=== PATIENT | female | born 1930 | race Caucasian/White ===

== ENCOUNTER 2016-08-27 09:33 | Outpatient (CLI) | payer MEDICARE, OTHER ==
[2015-12-24 17:39] VITALS: BP 151/85
[2016-08-27 10:31] LABS: eGFR (African) > 60; eGFR (Non-African) > 60
--- NOTE | 2016-08-27 13:58 | Diagnostic Imaging Report ---
JAMIE XIAO [facility] [address] [facility] [address] [address] Report Submission Date: Aug 27, 2016 11:44:37 AM CDT Patient Study Name: RA PLATT Date: Aug 27, 2016 9:48:43 AM CDT Modality Type: CR Gender: F Description: PELVIS : 32 Institution: [facility] Physician: JAMIE XIAO Left hip -two views CLINICAL HISTORY: Chronic left hip pain. FINDINGS: Examination left hip in AP and frog-leg lateral views demonstrates degenerative changes with slight narrowing of the joint space and minimal osteophyte formation. There is no evident fracture and no lytic or blastic lesion. IMPRESSION: Mild degenerative changes. Electronically signed on Aug 27, 2016 11:44:37 AM CDT by: Bryson RICHARDS
== END 2016-08-27 09:35 ==
LOC: LAB 09:33
PROVIDERS: ATTEND Family Medicine
DX: I10 Essential (primary) hypertension (principal); E11.9 Type 2 diabetes mellitus without complications; I25.10 Atherosclerotic heart disease of native coronary artery without angina pectoris; M25.552 Pain in left hip
CPT/HCPCS: 36415; 80048; 83036

== ENCOUNTER 2016-09-16 12:59 | Outpatient (CLI) | payer MEDICARE, OTHER ==
[2015-12-24 17:39] VITALS: BP 151/85
[~2016-09-16 12:59] MED LIST: BUPIVACAINE HCL/PF 2.5 MG/ML 10ML VIAL IV ONE; Lidocaine 1% 5ml(IM or SUTURE)(PAIN CLINIC) ONE; TRIAMCINOLONE ACETONID 40MG/ML VIAL ONE
--- NOTE | 2016-09-18 12:20 | HISTORY AND PHYSICAL REPORT ---
REFERRING PHYSICIAN: Dr. Dexter Beckham Dear Dexter: HISTORY OF PRESENT ILLNESS: I had the opportunity of seeing Adilene Rapp today as an outpatient at [facility]. As you are aware, Adilene is a very nice 86-year-old white female who comes in today with left hip pain radiating down the left lateral thigh. She says that this has been going on for several months. It has been getting worse and more limiting. She has not been unable to sustain standing or ambulation. She is also having some lateralizing hip pain when she lies down at night. She says the pain radiates to the knee but generally not past the lower leg. She has had a multi-level lumbar instrumentation and fusion with instrumentation of L2-L3, L3-L4, and L4-L5. She has got a decompression at L5-S1 without instrumentation with a questionable hypermobile segment at L5-S1. She really has very little symptoms on the right. She says the pain is primarily on the left and it has been about 5 years and now suddenly worse. 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 PAST MEDICAL HISTORY: 1. History of vision problems. 2. Heart attack. 3. Hypertension. 4. Diabetes. 5. Chronic pain. PAST SURGICAL HISTORY: 1. Cardiac bypass in 2014. 2. Cataracts removed in 2013. 3. Gallbladder removal. 4. Lumbar surgery around 1998. CURRENT DAILY MEDICATIONS: 1. Metoprolol 25 mg b.i.d. 2. HCTZ 12.5 mg daily. 3. Metformin 500 mg b.i.d. 4. Glimepiride 1 mg b.i.d. 5. Ibuprofen 600 mg t.i.d. p.r.n. 6. Atorvastatin 20 mg at bedtime. 7. Aspirin 81 mg daily. ALLERGIES: She has no known drug allergies. SOCIAL HISTORY: She is a former smoker. She denies alcohol or recreational drugs. She is a . She has 6 children. She lives at home alone. She completed high school. 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 She is not currently employed. She is not currently disabled. FAMILY HISTORY: Family history includes with stroke, cancer, and thyroid disease. Siblings with diabetes and cancer. REVIEW OF SYSTEMS: In the past month or so, she reports chest pain, swelling in hands and feet, shortness of breath, cough or cold. Pain is worse with standing, bending, walking, twisting, getting up from a chair, changes in weather, cold, driving, touch, getting up in the morning or in any position for too long. PHYSICAL EXAMINATION: General: This is a well-nourished, well-developed white female appearing her stated age in no apparent distress. Vital Signs: BP: 136/75, R: 20, oxygen saturation is 97% on room air. HEENT: Pupils are equal, round, and reactive to light and accommodation. Extraocular movements intact. No facial droop. Neck: There is full range of motion of the cervical spine. No evidence of adenopathy. Thyroid is nontender, no enlarged. Carotids are without bruits. Chest: Clear to auscultation bilaterally. Normal. Chest excursion. Heart: Regular rate and rhythm without murmur. Abdomen: Benign. Normoactive bowel sounds. Motor/sensory: Intact in the upper and lower extremities. Moves all extremities freely. Back: There is a mildly positive straight leg raise on the right. There is pain at the left sciatic notch and positive left straight leg raise and pain in the left sacroiliac joint. There is a negative Magdalena and a negative Orestes's sign. No evidence of pain from hip arthropathy. Strength is 5/5 and equal in lower extremities. Reflexes are 2+ and equal in patellar tendon and Achilles tendon. ASSESSMENT: 1. Lumbosacral radiculitis. 2. Left greater trochanteric bursitis. 3. History of L2 through S1 fusion with instrumentation at L2 through L5. 4. Possible hypermobile segment at L5-S1. PLAN: Plan for a left S1 transforaminal epidural injection today with left greater trochanteric bursa. Could consider obtaining CT imaging if not improved on follow up. I think this lady did have radiofrequency neurolysis done to her back at some point, questionably the sacroiliac joint because of the number of fusions. At this point, I am not impressed that this would be successful at controlling her back and hip pain. cc: Dr. Dexter RICHARDS
--- NOTE | 2016-09-18 12:30 | SACRAL TFESI ---
REFERRING PHYSICIAN: Dr. Dexter Beckham PROCEDURE: Left S1 nerve root transforaminal epidural steroid injection with fluoroscopic guidance. DESCRIPTION OF PROCEDURE: The risk and benefits of the injections were discussed with the patient, including the risk of infection, bleeding and nerve injury. Furthermore, I discussed the risk of steroid exposure causing hyperglycemia, hypertension, osteoporosis, of increased infectious risks. The patient understood these risks and agreed to proceed. Consent was obtained. The patient was placed in the prone position on the fluoroscopy table. The sacral region was cleaned and a sterile drape was applied. AP, lateral and oblique fluoroscopic views were obtained identifying the sacrum and the S1 foramen. A 25-gauge Quincke tip 3.5 spinal needle was advanced under direct fluoroscopic guidance until the tip was located in the lateral aspect of the foramen epidural space. This was confirmed with AP and lateral fluoroscopic views. Care was exercised not to allow the needle to pass through the sacrum anteriorly. It was verified that there was no aspiration of CSF or blood. Omnipaque 240 myelogram dye was injected through the needle. The dye was noted to course in the desired distribution within the left S1 sacral foramen epidural space and out the S1 nerve root. Triamcinolone acetate and 0.25% bupivacaine and 1% lidocaine was injected into the epidural space. The stylet was replaced in the needle and the needle was removed from the back. At this point, attention was directed to the left greater trochanteric bursa. An injection of triamcinolone and 0.25% bupivacaine mixed with 1% lidocaine was placed in the left greater trochanteric bursa. The patient tolerated the procedure well. The back was cleaned and a bandage was applied over the injection site. The patient was monitored for 10-20 minutes following the procedure. During this time the vital signs remained stable and the patient experienced no adverse sequelae. The patient was discharged home in good condition. ASSESSMENT: 1. Sacral radiculitis/neuritis. 2. History of L2 through L5-S1 decompression. 3. Left greater trochanteric bursitis. PLAN: Left S1 nerve root transforaminal epidural steroid injection with fluoroscopic guidance. FOLLOW UP: Return to clinic if problems develop or worsen. cc: Dr. Dexter RICHARDS
== END 2016-09-16 13:00 ==
LOC: OUT 12:59
PROVIDERS: ATTEND Anesthesiology Pain Medicine
DX: M54.18 Radiculopathy, sacral and sacrococcygeal region (principal); M70.62 Trochanteric bursitis, left hip
CPT/HCPCS: J3301; J3490; Q9966; 20610; 20611; 64483; 99214; G0463

== ENCOUNTER 2016-10-14 12:18 | Outpatient (CLI) | payer MEDICARE, OTHER ==
[2015-12-24 17:39] VITALS: BP 151/85
--- NOTE | 2016-10-16 10:17 | PAIN CLINIC PROGRESS NOTES ---
REASON FOR VISIT: I had the opportunity of following up with Adilene Rapp today as an outpatient at [facility]. This is a delightful 86-year-old white female who came in with left lumbar radiculopathy. She says the leg pain has completely resolved following her left S1 transforaminal injection on the 16 of September. She is not having any leg pain. Her daughter says that she has not been that ambulatory and that she continues to have some feelings of weakness in the left leg; and as I talk to her, she says that she can ambulate but, at this point, it is decreased because of numbness and perceived weakness. She denies symptoms of pain radiation or radiculitis or neurogenic claudication. ASSESSMENT: Left lumbar radiculitis, now improved status post S1 transforaminal injection. PLAN: At this point, I recommended that, as she is not having any pain symptoms and this looks like she is recovering, I am going to wait another 3 weeks and consider reevaluating her again and consider repeating the S1 transforaminal at that point. I told if she is having any problems sooner, I would be glad to see her in my office. They are in agreement. cc: Dr. Dexter RICHARDS
== END 2016-10-14 12:19 ==
LOC: OUT 12:18
PROVIDERS: ATTEND Anesthesiology Pain Medicine
DX: M54.16 Radiculopathy, lumbar region (principal)
CPT/HCPCS: 99214; G0463

== ENCOUNTER 2016-11-18 10:26 | Outpatient (CLI) | payer MEDICARE, OTHER ==
[2015-12-24 17:39] VITALS: BP 151/85
--- NOTE | 2016-11-18 15:06 | SACRAL TFESI ---
SUBJECTIVE: Ms. Rapp follows up with me today. This is a delightful 86-year-old female who is having left-sided lumbar radiculitis. I treated her 2 months ago with a single transforaminal S1 injection on the left side and her pain symptoms resolved. She came in and her daughter was saying she was still having some weakness at that time and I elected to wait a month. She says she is still having some weakness in the left leg but really no pain. Some pain in the sacroiliac joint. At this point, I think it is worthwhile to repeat a left S1 transforaminal under fluoroscopy. PROCEDURE: Left S1 nerve root transforaminal epidural steroid injection with fluoroscopic guidance. DESCRIPTION OF PROCEDURE: The risk and benefits of the injections were discussed with the patient, including the risk of infection, bleeding and nerve injury. Furthermore, I discussed the risk of steroid exposure causing hyperglycemia, hypertension, osteoporosis, of increased infectious risks. The patient understood these risks and agreed to proceed. Consent was obtained. The patient was placed in the prone position on the fluoroscopy table. The sacral region was cleaned and a sterile drape was applied. AP, lateral and oblique fluoroscopic views were obtained identifying the sacrum and the S1 neural foramen. A 25-gauge Quincke tip 3.5 spinal needle was advanced under direct fluoroscopic guidance until the tip was located in the lateral aspect of the foramen epidural space. This was confirmed with AP and lateral fluoroscopic views. Care was exercised not to allow the needle to pass through the sacrum anteriorly. It was verified that there was no aspiration of CSF or blood. Omnipaque 240 myelogram dye was injected through the needle. The dye was noted to course in the desired distribution within the S1 sacral foramen epidural space and out the S1 nerve root. The patient did report some reproduction of the low back and lower extremity pain symptoms; this reproduction of symptoms was short-lived. Triamcinolone acetate diluted in 1% lidocaine and 0.25% bupivacaine was injected into the epidural space. The stylet was replaced in the needle and the needle was removed from the back. The patient tolerated the procedure well. The back was cleaned and a bandage was applied over the injection site. The patient was monitored for 10-20 minutes following the procedure. During this time the vital signs remained stable and the patient experienced no adverse sequelae. The patient was discharged home in good condition. ASSESSMENT: Sacral radiculitis. PLAN: Plan for a transforaminal left side S1 nerve root today and we will follow her up in 1 month. cc: Dr. Dexter RICHARDS
== END 2016-11-18 10:27 ==
LOC: OUT 10:26
PROVIDERS: ATTEND Anesthesiology Pain Medicine
DX: M54.18 Radiculopathy, sacral and sacrococcygeal region (principal)
CPT/HCPCS: 64483; 99214; G0463; J3301; J3490; Q9966

== ENCOUNTER 2016-12-20 09:15 | Outpatient (CLI) | payer MEDICARE, OTHER ==
[2015-12-24 17:39] VITALS: BP 151/85
--- NOTE | 2016-12-20 13:05 | PAIN CLINIC PROGRESS NOTES ---
REASON FOR VISIT: I had the opportunity to follow up with Adilene Rapp today as an outpatient at [facility]. This is a delightful 86-year-old patient with left lumbar radiculitis who I treated with a lumbar transforaminal injection in November and then previously in September. Her pain scores have improved and she is doing much better. She is seen with her daughter and there is some disagreement between the 2 of them that her daughter thinks she is not doing quite as well as she tells me. PLAN: At this point, I think it is reasonable to follow her up next month for lumbar radiculitis with some numbness and intermittent weakness. I will give her information on a neurostimulator. At this point, I am not recommending a stimulator, it is simply for educational purposes. This may be something to turn to if she is having recalcitrant symptoms in the future. Follow up next month for possible transforaminal injection at S1. Dr. Beckham, thank you again for allowing me to take part in the care of this nice lady. I appreciate the opportunity to take part in the care of your patients. cc: Dr. Dexter RICHARDS
== END 2016-12-20 09:16 ==
LOC: OUT 09:15
PROVIDERS: ATTEND Anesthesiology Pain Medicine
DX: M54.10 Radiculopathy, site unspecified (principal)
CPT/HCPCS: 99213

== ENCOUNTER 2016-12-20 11:07 | Outpatient (CLI) | payer MEDICARE, OTHER ==
[2015-12-24 17:39] VITALS: BP 151/85
[2016-12-20 12:00] LABS: eGFR (African) > 60; eGFR (Non-African) > 60
== END 2016-12-20 11:10 ==
LOC: LAB 11:07
PROVIDERS: ATTEND Physician Assistant
DX: R07.89 Other chest pain (principal)
CPT/HCPCS: 36415; 80053; 84484

== ENCOUNTER 2017-01-20 10:34 | Outpatient (CLI) | payer MEDICARE, OTHER ==
[2015-12-24 17:39] VITALS: BP 151/85
--- NOTE | 2017-01-21 15:15 | SACRAL TFESI ---
SUBJECTIVE: Ms. Rapp follows up with me today as an outpatient at [facility]. This is a patient with chronic left lower extremity radiculitis. I placed 2 previous S1 transforaminal injections on her this year and she has done quite well. She did not need an injection the last time I saw her; however , the pain is returning. I did again mention the possibility of a neural stimulator if her symptoms did not respond to conservative therapy or injection. Plan today for S1 transforaminal nerve root block under fluoroscopic guidance. The patient is in agreement and we will proceed. PROCEDURE: Left S1 transforaminal nerve root epidural steroid injection with fluoroscopic guidance. DESCRIPTION OF PROCEDURE: Consent was obtained after risks were fully explained including bleeding, infection, nerve damage, and worsening of symptoms. Patient was positioned prone on the fluoroscopic procedure table. A sterile prep and drape were applied. Under a 1% lidocaine skin wheal on the left side, a number 23-gauge spinal needle was advanced to the left S1 neural foramen. An injection of nonionic contrast was placed and then followed by the injection of the medications. The stylette was replaced in the needle and the needle was removed from the back. The patient tolerated the procedure well. There were no apparent complications. The back was cleaned and a bandage was applied over the injection site. The patient was monitored for 10-20 minutes following the procedure. During this time the vital signs remained stable and the patient experienced no adverse sequelae. The patient was discharged home in good condition. ASSESSMENT: Chronic left S1 radiculitis, status post S1 transforaminal injection today. PLAN: Left S1 transforaminal nerve root epidural steroid injection with fluoroscopic guidance. FOLLOW UP: Return to clinic if problems develop or worsen. cc: Dr. Dexter RICHARDS
== END 2017-01-20 13:09 ==
LOC: OUT 10:34
PROVIDERS: ATTEND Anesthesiology Pain Medicine
DX: M54.18 Radiculopathy, sacral and sacrococcygeal region (principal)
CPT/HCPCS: J3301; J3490; Q9966; 64483; 99213; G0463

== ENCOUNTER 2017-02-28 09:40 | Outpatient (CLI) | payer MEDICARE, OTHER ==
[2015-12-24 17:39] VITALS: BP 151/85
[2017-02-28 17:41] LABS: TOTAL PROTEIN 6.9 g/dL (6.0-8.5)
== END 2017-02-28 09:42 ==
LOC: LAB 09:40
PROVIDERS: ATTEND Family Medicine
DX: E11.9 Type 2 diabetes mellitus without complications (principal); E78.00 Pure hypercholesterolemia, unspecified; I25.10 Atherosclerotic heart disease of native coronary artery without angina pectoris; Z51.81 Encounter for therapeutic drug level monitoring
CPT/HCPCS: 36415; 80053; 80061; 83036

== ENCOUNTER 2017-09-23 07:52 | Outpatient (CLI) | payer MEDICARE, OTHER ==
[2015-12-24 17:39] VITALS: BP 151/85
--- NOTE | 2017-09-24 10:48 | CAUDAL ESI WITH FLUORO ---
SUBJECTIVE: Ms. Rapp presents today with chronic back and bilateral lower extremity pain and symptoms of spinal stenosis. I have treated this lady intermittently several times over the last couple of years and she tends to improve. She is having bilateral pain today in both hips, right somewhat greater than left. At this point, I am going to plan on placing a caudal epidural steroid injection for her. I have explained I could repeat this roughly every 4 months. PROCEDURE: Caudal epidural steroid injection with fluoroscopy. DESCRIPTION OF PROCEDURE: The risks and benefits of a caudal epidural steroid injection were explained to the patient, including the risk of infection, bleeding, nerve injury, worsened pain, failure to relieve pain, spinal headache or steroid exposure risks, including hyperglycemia, hypertension, osteoporosis, and increased infectious risks. The patient understood the risks and agreed to proceed. The patient was positioned prone on the fluoroscopic procedure table with a pillow underneath the abdomen. The caudal area was cleaned. AP and lateral fluoroscopic views were obtained, identifying the sacrum and sacral hiatus. The caudal epidural space was accessed from a percutaneous approach at the sacral hiatus with an 23-gauge, 3-1/2 inch needle. On entering the caudal epidural space, it was verified that there was no aspiration of blood or CSF or urine. Furthermore, the needle tip location was verified with lateral and AP fluoroscopic views. Omnipaque 240 myelogram dye was injected through the needle. The distribution of the dye was noted to be within the desired distribution within the caudal epidural space. At this point, the medication was injected into the caudal epidural space. The stylette was replaced in the needle and the needle was subsequently removed from the back. The patient tolerated the procedure without adverse sequelae. The sacral area was cleaned and bandage was applied over the injection site. The patient was then monitored for 20 minutes following the procedure, during which time the vital signs remained stable and no adverse sequelae were noted or reported. 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 ASSESSMENT: 1. Lumbar stenosis. 2. Lumbosacral radiculitis/neuritis. PLAN: Caudal epidural steroid injection with fluoroscopy today. FOLLOW UP: Patient is to call for complications or worsened pain. cc: Dr. Dexter RICHARDS
== END 2017-09-23 07:53 ==
LOC: OUT 07:52
PROVIDERS: ATTEND Anesthesiology Pain Medicine
DX: M48.07 Spinal stenosis, lumbosacral region (principal); M54.16 Radiculopathy, lumbar region
CPT/HCPCS: J3301; Q9966; 62323; 99213; G0463

== ENCOUNTER 2017-10-04 20:59 | Emergency (ER) | payer MEDICARE, OTHER ==
[2017-10-04] MEDS ORDERED: DIPH,PERTUSS(ACELL),TET VAC/PF 0.5 ML DISP.SYRIN IM ONE (21:31)
--- NOTE | 2017-10-04 21:45 | ED Physician Documentation ---
Fall - HISTORIAN Historian: patient, child - HPI Stated Complaint: fall Chief Complaint: Fall Additional Information: pt went out back door down steps and into yard fall face into cement w/ abRASION AND LAC NOSE BRIDGE. pr unsure loc but c/o headache and sl confused. neuro appears intact. willl get ct brain plus r/o facial fractures Onset: today (2030 hrs) Where: home Context: lost balance r: moderate Associated Symptoms:: denies: no loss of consciousness (unsure) Location of Pain/Injury: head, face Injury to Right Extremity: none Injury to Left Extremity: none Further Comments: yes (neur appears intact) - ROS CONST: no problems NEURO: dizziness (slight). denies: anxiety, depression EYES/ENT: denies: problems with vision CVS/RESP: none. denies: shortness of breath GI/: denies: nausea, vomiting - PAST HX Past History: diabetes Type 2, other (htn djd hi chol) Immunizations: denies: UTD Allergies/Adverse Reactions: Allergies Allergy/AdvReac Type Severity Reaction Status Date / Time No Known Drug Allergies Allergy Verified 12/24/15 14:49 - SOCIAL HX Smoking History: non-smoker Alcohol Use: none Drug Use: none - FAMILY HX Family History: no significant history - VITAL SIGNS Vital Signs: Vital Signs Temp Pulse Resp BP Pulse Ox 98 F 93 H 20 154/93 96 10/04/17 20:59 10/04/17 20:59 10/04/17 20:59 10/04/17 20:59 10/04/17 20:59 - REVIEWED ASSESSMENTS Nursing Assessment Reviewed: Yes Vitals Reviewed: Yes Progress - Progress Progress: pt continues to do well. she states she is tired and would like to go home to bed. son will call backkand ct report will be given to him. her condition has devolved. this does not appear improper. ED Results Lab/Radiology - Orders Orders: ED Orders Category Date Time Status Skin Adhesive NOW Care 10/04/17 21:[address] BRAIN W/O CONTRAST Stat Exams 10/04/17 Ordered Diph,Pertuss(Acell),Tet Vac/Pf [Adacel] Med 10/04/17 21:31 Once 0.5 ml IM .ONCE ONE Fall Physical Exam - Physical Exam General Appearance: mild distress Head: No: non-tender, no swelling, no obvious injury, raccoon eyes Neck: pain with neck movement (but central spinous = ok pt says no more than usual) Eye: HANSEL, EOMI. No: subconjunctival hemorrhag, hyphema ENT: nml external inspection Resp/CVS: chest non-tender, no ecchymosis, breath sounds nml, no resp. distress , rib tenderness Abdomen: soft, non-tender Neuro: oriented x3, sensation nml, motor nml Skin: color nml, no rash. No: cyanosis, diaphoresis Back: normal inspection, no CVA tenderness, no vertebral tenderness Extremities: atraumatic, pelvis stable, hips non-tender, no pedal edema, nml ROM Joint: joints nml, nml ROM, Nml gait/weight bearing. No: ligamentous instability - [place] Coma Score Eyes Open: Spontaneous Speech: Oriented Motor: Obeys Commands Discharge Clincal Impression: fall w/cerebral contusion, facial abrasions w/ lac nose Referrals: Dexter Beckham MD [Primary Care Provider] - 2 Days Comments: home phone consul re reports and fopllow-up care. her lab is being delayes also -apparently mechanical problems in laboratory Condition: Good Disposition: 01 HOME, SELF-CARE Decision to Admit: NO Decision Time: 23:01
[2017-10-04] MEDS ORDERED: ACETAMINOPHEN 325 MG TABLET PO ONE (22:41)
[2017-10-04 22:58] LABS: BASOPHILS % 0.3 (0.0-1.5); EOSINOPHILS % 1.7 % (0.0-6.8); MEAN CORPUSCULAR HEMOGLOBIN 29.9 pg (28.0-34.0); MEAN CORPUSCULAR VOLUME 89.7 fl (80.0-100.0); MONOCYTES % 4.3 % (0.0-11.0); NEUTROPHILS # 11.3 # k/uL (1.4-7.7); eGFR (African) > 60; eGFR (Non-African) > 60
[2017-10-04 23:17] VITALS: BP 122/68
--- NOTE | 2017-10-04 23:48 | Diagnostic Imaging Report ---
[facility] [address] [facility] [address] [address] Report Submission Date: Oct 04, 2017 11:39:43 PM CDT Patient Study Name: RA PLATT Date: Oct 04, 2017 10:24:48 PM CDT Modality Type: CT\SR Gender: F Description: CT BRAIN W/O CONTRAST : 32 Institution: [facility] Physician: NARCISA MARTINEZ Head CT without contrast Clinical history: PT STATES FALL Technique: CT examination of the brain was performed and contiguous axial slices without the use of contrast. Sagittal and coronal reconstructions are performed by the technologist. Findings: The 4th ventricle lies in a normal midline position. The ventricles and sulci are prominent secondary to atrophy. Chronic ischemic changes are present in the periventricular regions. There is no hypodense or hyperdense mass or intracranial hemorrhage. Patchy opacification right mastoid air cells. There is subcutaneous emphysema adjacent to the nasal bones and in the premaxillary space and frontal region. There is no obvious fracture on available images. Consider CT of the facial bones for better evaluation if indicated clinically. Impression: 1. Atrophy and chronic small vessel ischemic changes. 2. Poorly aerated right mastoids. 3. Subcutaneous emphysema adjacent to the nasal bones and in the frontal region. Electronically signed on Oct 04, 2017 11:39:43 PM CDT by: Bryson RICHARDS
== END 2017-10-04 23:09 | disposition home or self-care (01) ==
LOC: ED 20:59
DX: S00.93XA Contusion of unspecified part of head, initial encounter (principal); S00.81XA Abrasion of other part of head, initial encounter; S01.21XA Laceration without foreign body of nose, initial encounter; W19.XXXA Unspecified fall, initial encounter
CPT/HCPCS: 70450; 80053; 81002; 85025; 85610; 90715; 99283; 99284

== ENCOUNTER 2018-02-27 08:37 | Emergency (ER) | payer MEDICARE, OTHER ==
--- NOTE | 2018-02-27 08:54 | ED Physician Documentation ---
General Adult - HISTORIAN Historian: patient - HPI Stated Complaint: chest pain Chief Complaint: General Adult Onset: days ago (1) Timing: still present Severity: mild Further Comments: yes (Pt is an 87 yo female who had intermittent episodes of sharp chest pain on the L side, yesterday. Pain lasted one or two minutes when it occurred. Pt had mild nausea and diaphoresis and some sob. No dizziness. Pt has hx [place] with CABG. Pt has not had sx today. She has a hx GERD.) - ROS CONST: no problems EYES/ENT: none CVS/RESP: chest pain (intermittent sharp pain in L chest, short duration, yesterday.), shortness of breath (mild, occurred yesterday) GI/: nausea (mild, occurred yesterday) NEURO/PSYCH: headache (mild (chronic)) - PAST HX Past History: other (DM, HLD, HTN) Surgeries/Procedures: cardiac bypass, other (appendectomy, cholecystectomy, ortho surgery) Allergies/Adverse Reactions: Allergies Allergy/AdvReac Type Severity Reaction Status Date / Time No Known Drug Allergies Allergy Verified 02/27/18 09:03 Home Medications: Ambulatory Orders Medication Instructions Recorded Acetaminophen [Tylenol] 650 mg PO Q4 PRN 02/27/18 Glimepiride 1 mg PO BID 02/27/18 - SOCIAL HX Smoking History: non-smoker - FAMILY HX Family History: No - VITAL SIGNS Vital Signs: Vital Signs Temp Pulse Resp BP Pulse Ox 122/68 10/04/17 23:12 - REVIEWED ASSESSMENTS Nursing Assessment Reviewed: Yes Vitals Reviewed: Yes Progress - Progress Progress: CXR: Single view of the chest demonstrates a normal cardiac and mediastinal silhouette. Tortuous aorta. Vascular calcification by the aortic arch. Sternotomy wires. Chronic interstitial changes. Lung angela without focal infiltrate. No blunting of the costophrenic margins. Acromioclavicular joint degenerative changes. Impression: Chronic parenchymal changes. No acute pulmonary process. Famotidine 20 mg IV May try OTC Pepcid or Zantac. - EKG/XRAY/CT EKG: NSR (HR=72; LAD; RBBB; unchanged since 12/20/16.) ED Results Lab/Radiology - Orders Orders: ED Orders Category Date Time Status Continuous EKG monitoring Q30M Care 02/27/18 08:50 Ordered Continuous Pulse Oximetry Q30M Care 02/27/18 08:[address] IV Lock 1T Care 02/27/18 08:50 Ordered CHEST 1VIEW [RAD] Stat Exams 02/27/18 Ordered BNP [NT-proBNP] Stat Lab 02/27/18 Ordered CBC/PLATELET/DIFF Routine Lab 02/27/18 08:50 Ordered CKMB Stat Lab 02/27/18 Ordered CMP Routine Lab 02/27/18 08:50 Ordered CREATINE KINASE Routine Lab 02/27/18 08:50 Ordered D DIMER Stat Lab 02/27/18 Ordered TROPONIN I (cTnI) Stat Lab 02/27/18 08:50 Ordered Aspirin Med 02/27/18 08:50 Once 324 mg PO NOW ONE Oxygen Daily Oxygen 02/27/18 09:00 Ordered EKG WITH COMPARISON Stat Ther 02/27/18 08:50 Ordered General Adult Physical Exam - PHYSICAL EXAM GENERAL APPEARANCE: mild anxiety EENT: pharynx normal NECK: normal inspection, supple RESPIRATORY: no resp distress, chest non-tender, breath sounds normal CVS: reg rate & rhythm, heart sounds normal ABDOMEN: soft, no organomegaly, normal bowel sounds BACK: normal inspection, no CVA tenderness, CVA tenderness (R) SKIN: warm/dry, normal color EXTREMITIES: non-tender, normal range of motion, no evidence of injury, no edema NEURO: oriented X3, motor nml, sensation nml Discharge Clincal Impression: Non-cardiac chest pain, possible GERD Referrals: Dexter Beckham MD [Primary Care Provider] - Condition: Good Disposition: 01 HOME, SELF-CARE Decision to Admit: NO Decision Time: 10:50
[2018-02-27] MEDS: ASPIRIN 81 MG CHEW TAB PO ONE (09:16)
[2018-02-27 09:25] LABS: eGFR (Non-African) > 60
[2018-02-27 10:32] LABS: BASO % 0.4 % (0.0-1.5); LYMPH ABS # 1.84 thou/uL (0.60-4.00); MCH. 29.5 pg (28.0-34.0); MCV 87.6 fL (80.0-100.0); MONOCYTE % 6.3 % (0.0-11.0); MONOCYTE ABS # 0.55 thou/uL (0.00-0.90); PLATELET COUNT 258 thou/uL (130-400)
[2018-02-27] MEDS: FAMOTIDINE/PF 20 MG/2 ML VIAL IVP ONE (11:00)
[2018-02-27 11:15] VITALS: BP 138/69
--- NOTE | 2018-02-27 18:42 | Diagnostic Imaging Report ---
LYSSA LEDEZMA [facility] [address] [facility] [address] [address] Report Submission Date: Feb 27, 2018 9:12:08 AM CDT Patient Study Name: RA PLATT Date: Feb 27, 2018 8:51:08 AM CDT Modality Type: DX Gender: F Description: CHEST : 32 Institution: [facility] Physician: LYSSA LEDEZMA Examination: Portable chest History: Evaluate lungs. PCXR, CHEST PAIN SINCE YESTERDAY WITH LEFT SIDED ARM SORENESS THIS MORNING. HX OF HEART SURGERY IN 2015 (Hx) Comparison exam: None provided. Findings: Single view of the chest demonstrates a normal cardiac and mediastinal silhouette. Tortuous aorta. Vascular calcification by the aortic arch. Sternotomy wires. Chronic interstitial changes. Lung angela without focal infiltrate. No blunting of the costophrenic margins. Acromioclavicular joint degenerative changes. Impression: Chronic parenchymal changes. No acute pulmonary process. Electronically signed on Feb 27, 2018 9:12:08 AM CDT by: Yordan RICHARDS
== END 2018-02-27 11:14 | disposition home or self-care (01) ==
LOC: ED 08:37
DX: R07.89 Other chest pain (principal); I25.2 Old myocardial infarction; Z87.19 Personal history of other diseases of the digestive system
CPT/HCPCS: 71045; 80053; 82550; 82553; 83880; 84484; 85025; 85379; 96374; 99285; S0028; S1016

== ENCOUNTER 2018-03-09 12:17 | Outpatient (CLI) | payer MEDICARE, OTHER ==
[2018-03-09 13:21] LABS: eGFR (Non-African) > 60
[2018-03-09 23:12] LABS: BASO % 0.5 % (0.0-1.5); EOS % 4.2 % (0.0-6.8); LYMPH ABS # 2.32 thou/uL (0.60-4.00); MCH. 29.4 pg (28.0-34.0); MCV 91.5 fL (80.0-100.0); MONOCYTE % 6.1 % (0.0-11.0); MONOCYTE ABS # 0.55 thou/uL (0.00-0.90); PLATELET COUNT 305 thou/uL (130-400)
== END 2018-03-09 12:19 ==
LOC: LAB 12:17
PROVIDERS: ATTEND Family Medicine
DX: E11.9 Type 2 diabetes mellitus without complications (principal); E78.00 Pure hypercholesterolemia, unspecified; I25.10 Atherosclerotic heart disease of native coronary artery without angina pectoris; Z51.81 Encounter for therapeutic drug level monitoring
CPT/HCPCS: 36415; 80053; 80061; 83036; 85025

== ENCOUNTER 2018-09-23 17:31 | Outpatient (CLI) | payer MEDICARE, OTHER ==
[2018-09-23 18:44] LABS: eGFR (Non-African) > 60
== END 2018-09-23 17:33 ==
LOC: LAB 17:31
PROVIDERS: ATTEND Family Medicine
DX: I10 Essential (primary) hypertension (principal); E11.9 Type 2 diabetes mellitus without complications
CPT/HCPCS: 36415; 80053; 83036

== ENCOUNTER 2019-02-22 15:29 | Outpatient (CLI) | payer MEDICARE, OTHER | END 2019-02-22 15:32 | LOC: LAB 15:29 | PROVIDERS: ATTEND Family Medicine | DX: G62.9 Polyneuropathy, unspecified (principal); E11.9 Type 2 diabetes mellitus without complications | CPT/HCPCS: 36415; 82607; 82746; 83036; 85651 ==

== ENCOUNTER 2019-02-24 10:06 | Emergency (ER) | payer MEDICARE, OTHER ==
[2019-02-24 10:55] LABS: BASOPHILS % 0.5 % (0.0-1.5)
--- NOTE | 2019-02-24 11:07 | ED Physician Documentation ---
Fall - HISTORIAN Historian: patient - HPI Stated Complaint: fall, head injury Chief Complaint: Fall Onset: just prior to arrival Where: home Context: lost balance r: mild Associated Symptoms:: no loss of consciousness Location of Pain/Injury: head Injury to Left Extremity: forearm Further Comments: yes (88 year old female patient presents after a fall from standing. Patient was walking backwards out of her closet; lost her balance, fell back hitting the back of her head.) - ROS CONST: no problems NEURO: denies: dizziness, anxiety, depression, other MS/SKIN/LYMPH: denies: weakness, numbness, neck pain, back pain, ankle swelling, leg swelling, rash, other EYES/ENT: none CVS/RESP: none GI/: denies: problems urinating, nausea, vomiting, other - PAST HX Past History: diabetes Type 2, other (HTN, TIA, HLD, dementia, CAD, ) Allergies/Adverse Reactions: Allergies Allergy/AdvReac Type Severity Reaction Status Date / Time No Known Drug Allergies Allergy Verified 02/24/19 10:40 Home Medications: Ambulatory Orders Medication Instructions Recorded Acetaminophen [Tylenol] 650 mg PO Q4 PRN 02/27/18 Loratadine [Claritin] 10 mg PO DAILY 02/24/19 - SOCIAL HX Smoking History: non-smoker - FAMILY HX Family History: denies: none - VITAL SIGNS Vital Signs: Vital Signs Temp Pulse Resp BP Pulse Ox 96.3 F L 95 H 16 124/79 95 02/24/19 10:10 02/24/19 10:10 02/24/19 10:10 02/24/19 10:10 02/24/19 10:10 - REVIEWED ASSESSMENTS Nursing Assessment Reviewed: Yes Vitals Reviewed: Yes ED Results Lab/Radiology - Lab Results Lab Results: Lab Results 02/24/19 10:52 WBC 7.40 K/ul K/ul (4.00-12.00) RBC 4.33 M/ul M/ul (3.90-5.20) Hgb 12.6 g/dL g/dL (11.5-16.0) Hct 37.0 % % (34.5-46.5) MCV 86.0 fl fl (80.0-100.0) MCH 29.2 pg pg (28.0-34.0) MCHC 34.1 g/dL g/dL (30.0-36.0) RDW 14.5 % H % (11.3-14.3) Plt Count 228 K/mm3 K/mm3 (130-400) Neut % (Auto) 67.0 % % (39.0-79.0) Lymph % (Auto) 19.1 % % (16.0-50.0) [place] % (Auto) 8.8 % % (0.0-11.0) Eos % (Auto) 4.6 % % (0.0-6.8) Baso % (Auto) 0.5 % % (0.0-1.5) Neut # (Auto) 5.0 # k/uL # k/uL (1.4-7.7) Lymph # (Auto) 1.4 # k/uL # k/uL (0.6-4.0) [place] # (Auto) 0.7 # k/uL # k/uL (0.0-0.9) Eos # (Auto) 0.3 # k/uL # k/uL (0.0-0.6) Baso # (Auto) 0.0 # k/uL # k/uL (0.0-0.5) - Radiology Radiology Impressions: Exam: CT brain without contrast. History: Status post fall. Axial images through the brain are submitted along with sagittal and coronal reformatted images. The examination is compared to a study dated October 04, 2017. The surrounding cisterns in the posterior fossa are prominent. The brainstem and cerebellum are of normal attenuation. In the supratentorial regions, no acute hemorrhage or mass effect is identified. The lateral ventricles and surrounding sulci are prominent. Confluent areas of diminished attenuation adjacent to the lateral ventricles indicate small vessel disease. No extra- axial fluid collections are identified. No new bony abnormalities are identified. Impression: Atrophy. Small vessel disease. Electronically signed on Feb 24, 2019 10:52:54 AM CDT by: Orestes Baird - Orders Orders: ED Orders Category Date Time Status CT BRAIN W/O CONTRAST Stat Exams 02/24/19 Ordered CBC/PLATELET/DIFF Stat Lab 02/24/19 10:52 Completed CMP Stat Lab 02/24/19 10:52 Received Fall Physical Exam - Physical Exam General Appearance: mild distress Head: non-tender, no swelling, no obvious injury Neck: non-tender, painless ROM, trachea midline Eye: HANSEL, EOMI, lids & conjunct. nml Resp/CVS: chest non-tender, no ecchymosis, breath sounds nml, no resp. distress, heart sounds nml Abdomen: soft, no organomegaly, normal bowel sounds, no abdominal bruit, no distension Neuro: oriented x3, CN's nml as tested, sensation nml, motor nml, mood/affect nml, catcher filter tip nml, reflexes nml, catcher filter tip symmetrical Skin: color nml, no rash, nml palp., dry, other (steri strips to right forearm skin tear (placed at assisted living)) Extremities: atraumatic, pelvis stable, hips non-tender, no pedal edema, nml ROM, nml color/temp Joint: joints nml, nml ROM, Nml gait/weight bearing - [place] Coma Score Eyes Open: Spontaneous Speech: Oriented Motor: Obeys Commands Discharge Clincal Impression: Closed head injury Qualifiers: Encounter type: initial encounter Qualified Code(s): S09.90XA - Unspecified injury of head, initial encounter Fall Qualifiers: Encounter type: initial encounter Qualified Code(s): W19.XXXA - Unspecified fall, initial encounter Referrals: Dexter Beckham MD [Primary Care Provider] - 2 Days Additional Instructions: Return to ER if if you have any of the follow symptoms: 1.Extremely sleepy or confused 2.Severe or worsening headache 3.Seizure 4.Vomiting, fever >101.5, or stiff neck 5.Loss of control or urine or bowel 6.Trouble walking 7.Use Tylenol every 4 hours as needed for Headache 8.Diet: Start with Clear liquids and advance diet as tolerated. 9.Follow up with your doctor in 2-3 days. Condition: Stable Disposition: 01 HOME, SELF-CARE Decision to Admit: NO Decision Time: 11:08
[2019-02-24] MEDS: ACETAMINOPHEN 500 MG TABLET PO ONE (11:17)
[2019-02-24 11:51] VITALS: BP 109/72
[2019-02-24 15:04] LABS: TSH 2.2 mIU/l (0.465-4.685)
--- NOTE | 2019-02-24 17:15 | Diagnostic Imaging Report ---
DOUG FIGUEREDO (ADDING MACHINE MECHANIC) - ER [facility] [address] [facility] [address] [place], [place]. [address] Report Submission Date: Feb 24, 2019 10:52:54 AM CDT Patient Study Name: RA PLATT Date: Feb 24, 2019 10:32:00 AM CDT Modality Type: CT\SR Gender: F Description: CT BRAIN W/O CONTRAST : 31 Institution: [facility] Physician: DOUG FIGUEREDO (ADDING MACHINE MECHANIC) - ER Exam: CT brain without contrast. History: Status post fall. Axial images through the brain are submitted along with sagittal and coronal reformatted images. The examination is compared to a study dated October 04, 2017. The surrounding cisterns in the posterior fossa are prominent. The brainstem and cerebellum are of normal attenuation. In the supratentorial regions, no acute hemorrhage or mass effect is identified. The lateral ventricles and surrounding sulci are prominent. Confluent areas of diminished attenuation adjacent to the lateral ventricles indicate small vessel disease. No extra- axial fluid collections are identified. No new bony abnormalities are identified. Impression: Atrophy. Small vessel disease. Electronically signed on Feb 24, 2019 10:52:54 AM CDT by: Orestes RICHARDS
== END 2019-02-24 11:20 | disposition home or self-care (01) ==
LOC: ED 10:06
DX: S09.90XA Unspecified injury of head, initial encounter (principal); W01.0XXA Fall on same level from slipping, tripping and stumbling without subsequent striking against object, initial encounter; Y93.01 Activity, walking, marching and hiking; Y92.019 Unspecified place in single-family (private) house as the place of occurrence of the external cause
CPT/HCPCS: 70450; 80053; 84443; 85025; 99283

== ENCOUNTER 2019-04-01 12:50 | Emergency (ER) | payer MEDICARE, OTHER ==
--- NOTE | 2019-04-01 13:02 | ED Physician Documentation ---
Upper Respiratory Symptoms - HISTORIAN Historian: patient - HPI Chief Complaint: Cough/ Upper Respiratory Additional Information: Patient presents from [facility] with her daughter in law. She has not been feeling well for awhile- she saw her PCP and was started on an inhaler; she then started to have a productive cough and sinus sx's and saw another provider in the clinic on 03/24/19 and was started on Augmentin 875mg BID x 10day, mucinex 600mg daily, and Robitussin 10cc prn. Patient states she is not feeling much better. She denies any f/c/n/v/d. She states that she just feels tired and has a decrease in appetite. Onset: days ago Duration: constant Context: denies: recent foreign travel Severity: moderate Associated Symptoms: allergy, productive cough. denies: fever, chills - ROS CONST/EYES: weakness CVS/RESP: shortness of breath (with exertion) LYMPH: denies: leg swelling GI/: none NEURO/PSYCH: denies: confusion MS/SKIN: muscle aches (right rib discomfort) - PAST HX Lung Disease: other (HTN, CAD, Dementia, Hip pain, HLD, TIA, DVT, Depression, Left Carotid Bruit) PE Risk Factors: hypertension Immunizations: UTD Allergies/Adverse Reactions: Allergies Allergy/AdvReac Type Severity Reaction Status Date / Time No Known Drug Allergies Allergy Verified 04/01/19 13:10 Home Medications: Ambulatory Orders Medication Instructions Recorded Azithromycin [Zithromax] 250 mg PO DAILY #4 tablet 04/01/19 Gabapentin 1 tab PO TID 04/01/19 LevoFLOXacin [Levaquin] 500 mg PO DAILY #10 tablet 04/01/19 - SOCIAL HX Smoking History: non-smoker Alcohol Use: none Drug Use: none - FAMILY HX Family History: none - VITAL SIGNS Vital Signs: Vital Signs Temp Pulse Resp BP Pulse Ox 80 14 118/53 92 04/01/19 15:04 04/01/19 15:04 04/01/19 15:04 04/01/19 15:04 - REVIEWED ASSESSMENTS Nursing Assessment Reviewed: Yes Vitals Reviewed: Yes Progress - Progress Progress: Patient feels much better after IV fluids and breathing treatment ED Results Lab/Radiology - Lab Results Lab Results: Lab Results 04/01/19 04/01/19 13:08 13:07 WBC 12.30 K/ul H K/ul (4.00-12.00) RBC 4.17 M/ul M/ul (3.90-5.20) Hgb 12.3 g/dL g/dL (11.5-16.0) Hct 35.6 % % (34.5-46.5) MCV 85.0 fl fl (80.0-100.0) MCH 29.6 pg pg (28.0-34.0) MCHC 34.7 g/dL g/dL (30.0-36.0) RDW 14.6 % H % (11.3-14.3) Plt Count 239 K/mm3 K/mm3 (130-400) Neut % (Auto) 72.1 % % (39.0-79.0) Lymph % (Auto) 14.2 % L % (16.0-50.0) [place] % (Auto) 9.2 % % (0.0-11.0) Eos % (Auto) 4.0 % % (0.0-6.8) Baso % (Auto) 0.5 % % (0.0-1.5) Neut # (Auto) 8.9 # k/uL H # k/uL (1.4-7.7) Lymph # (Auto) 1.8 # k/uL # k/uL (0.6-4.0) [place] # (Auto) 1.1 # k/uL H # k/uL (0.0-0.9) Eos # (Auto) 0.5 # k/uL # k/uL (0.0-0.6) Baso # (Auto) 0.1 # k/uL # k/uL (0.0-0.5) Sodium 142 mmol/L mmol/L (137-145) Potassium 3.8 mmol/L mmol/L (3.5-5.1) Chloride 103 mmol/L mmol/L (98-107) Carbon Dioxide 25 mmol/L mmol/L (22-30) Anion Gap 17.8 BUN 30 mg/dL H mg/dL (7-17) Creatinine 1.61 mg/dL H mg/dL (0.52-1.04) Estimated Creat Clear 31 Est GFR ( Amer) 39 L (60 - ) Est GFR (Non-Af Amer) 32 L (60 - ) Glucose 181 mg/dL H mg/dL (74-106) Calcium 9.2 mg/dL mg/dL (8.4-10.2) Total Bilirubin 0.4 mg/dL mg/dL (0.2-1.3) AST 46 U/L U/L (15-46) ALT 17 U/L U/L (0-35) Alkaline Phosphatase 89 U/L U/L (38-126) Total Protein 7.1 g/dL g/dL (6.3-8.2) Albumin 4.1 g/dL g/dL (3.5-5.0) - Radiology Radiology Impressions: HISTORY: COUGH AND CONGESTION, PT STATES X2-3 WEEKS. COMPARISON: February 27, 2018. CHEST RADIOGRAPH, FRONTAL AND LATERAL: Upper mediastinum: Atherosclerotic calcification of the aortic arch. Heart: No cardiomegaly. Lungs: Since the prior exam, there has been interval development of patchy peripheral infiltrates abdomen, predominantly within the right lateral midlung and bilateral lung bases. There is hyperinflation of COPD. No lobar infiltrate, pulmonary edema, pneumothorax or significant effusion. Skeleton: Median sternotomy wires. Mild thoracic dextroscoliosis. Thoracolumbar fusion hardware partially visualized. IMPRESSION: In the 1-year interval, there has been development of patchy opacities within the peripheral lungs and lung bases. This finding is nonspecific but may indicate an interstitial lung process such as interstitial lung disease or pneumonitis. Consider further evaluation with noncontrast chest CT, if clinically indicated. - Orders Orders: ED Orders Category Date Time Status Place IV Lock 1T Care 04/01/19 13:43 Active CHEST 2VIEW [RAD] Stat Exams 04/01/19 Completed CBC/PLATELET/DIFF Routine Lab 04/01/19 13:07 Completed CMP Routine Lab 04/01/19 13:08 Completed 0.9 % Sodium Chloride [Normal Saline] 500 ml Med 04/01/19 13:43 Discontinued IV NOW Azithromycin [Zithromax] Med 04/01/19 14:20 Discontinued 500 mg PO NOW ONE Ipratropium/Albuterol Sulfate [Duoneb] Med 04/01/19 13:08 Discontinued 3 ml NEB NOW ONE Ipratropium/Albuterol Sulfate [Duoneb] Med 04/01/19 14:24 Discontinued 3 ml NEB NOW ONE LevoFLOXacin [Levaquin] Med 04/01/19 14:20 Discontinued 500 mg PO NOW ONE Upper Respiratory Symptoms - EXAM General Appearance: alert, mild distress EENT: eyes nml inspection, nml ENT inspection, lids & conjunct. nml, PERRL, ear nml, pharynx nml Neck: normal inspection Respiratory: speaks full sentences, rhonchi (right lower lobe) Abdomen: non-tender CVS: heart sounds normal, equal pulses Skin: color nml, no rash, warm,dry Extremities: non-tender, normal range of motion Neuro/Psych: oriented x3, neuro intact, mood/affect nml Discharge Clincal Impression: Pneumonia Prescriptions: Azithromycin [Zithromax] 250 mg PO DAILY #4 tablet LevoFLOXacin [Levaquin] 500 mg PO DAILY #10 tablet Referrals: Dexter Beckham MD [Primary Care Provider] - 2 Days Additional Instructions: Start Levaquin 500mg daily for 10 days and Zithromax 250mg daily for 4 days; start both on 04/02/19 (received 1st doses in the ER) Please give patient Claritin 10mg daily along with Mucinex daily She may continue to use Robitussin for her cough as previously directed as well as her inhaler Increase fluid intake May alternate Tylenol and Ibuprofen as needed for fever/discomfort Follow up with PCP next week for reevaluation Condition: Good Disposition: 01 HOME, SELF-CARE Decision to Admit: NO Decision Time: 21:44
[2019-04-01] MEDS: IPRATROPIUM/ALBUTEROL SULFATE 3 ML AMPUL.NEB NEB ONE ×2 (13:15→14:52)
[2019-04-01 13:29] LABS: BASOPHILS % 0.5 % (0.0-1.5); NEUTROPHILS # 8.9 # k/uL (1.4-7.7)
[2019-04-01] MEDS: 0.9 % SODIUM CHLORIDE 500 ML IV ONE (13:58)
--- NOTE | 2019-04-01 13:59 | Diagnostic Imaging Report ---
PATIENT MR#: [id number] PATIENT PATIENT NAME: RA PLATT DATE OF : 1930 REFERRING PHYSICIAN: Jeannie Solis EXAM DATE: 04/01/2019 ACCESSION NUMBER: [id number] EXAM DESCRIPTION: CHEST 2VIEW HISTORY: COUGH AND CONGESTION, PT STATES X2-3 WEEKS. COMPARISON: February 27, 2018. CHEST RADIOGRAPH, FRONTAL AND LATERAL: Upper mediastinum: Atherosclerotic calcification of the aortic arch. Heart: No cardiomegaly. Lungs: Since the prior exam, there has been interval development of patchy peripheral infiltrates abd omen, predominantly within the right lateral midlung and bilateral lung bases. There is hyperinflation of COPD. No lobar infiltrate, pulmonary edema, pneumothorax or significant effusion. Skeleton: Median sternotomy wires. Mild thoracic dextroscoliosis. Thoracolumbar fusion hardware parti ally visualized. IMPRESSION: In the 1-year interval, there has been development of patchy opacities within the periphe ral lungs and lung bases. This finding is nonspecific but may indicate an interstitial lung process such as interstitial lung disease or pneumonitis. Consider further evaluation with noncontrast chest CT, if clinically indicated. Read by: Dr. Abad Siegel Transcribed by: Abad Siegel Transcribed Date: 04/01/2019 1:58:57 PM Electronically signed by: Dr. Abad Siegel Date signed: 04/01/2019 1:59:00 PM
[2019-04-01] MEDS: LevoFLOXacin 500 MG TABLET PO ONE (14:28)
[2019-04-01] MEDS: AZITHROMYCIN 250 MG TABLET PO ONE (14:28)
[2019-04-01 15:06] VITALS: BP 118/53
== END 2019-04-01 14:53 | disposition home or self-care (01) ==
LOC: ED 12:50
DX: J18.9 Pneumonia, unspecified organism (principal)
CPT/HCPCS: 71046; 80053; 85025; 94640; 96360; 99284; J7060; S1016